=== PATIENT | male | born 1990 | race Caucasian/White ===

== ENCOUNTER 2022-12-14 11:01 | Inpatient (IN) | payer OTHER, SELFPAY ==
[2022-12-14 11:02] VITALS: BP 113/90; PULSE 102; RESP 18; TEMP 36.2; O2SAT 98; BMI 30.1
[2022-12-14 11:12] VITALS: O2SAT 98
--- NOTE | 2022-12-14 11:26 | EKG12_ITS ---
Test Reason : Blood Pressure : / mmHG Vent. Rate : 110 BPM Atrial Rate : 110 BPM P-R Int : 160 ms QRS Dur : 090 ms QT Int : 372 ms P-R-T Axes : 063 -06 141 degrees QTc Int : 503 ms Sinus tachycardia with frequent Premature ventricular complexes Minimal voltage criteria for LVH, may be normal variant ( R in aVL ) T wave abnormality, consider lateral ischemia Abnormal ECG Confirmed by JAKE GUY, MARTA ([id number]), editor index MAUREEN KEITA ([id number]) on 12/18/2022 10:30:45 AM Referred By: KURTIS Confirmed By:MARTA JOSEPH MD
--- NOTE | 2022-12-14 11:28 | NURSING ---
NO OLD EKGS
--- NOTE | 2022-12-14 11:30 | ED.VIS.DYS ---
HPI History of Present Illness Chief Complaint: Shortness of Breath Detail of Chief Complaint: Shortness of breath Informant: patient Narrative Narrative: Patient presents with shortness of breath that started a week ago. Patient had a cough a week ago. Patient described as a mild cold. He denies chest pain. Patient complains of exertional dyspnea. He denies recent surgery but states that he did travel to [place] about a month ago. Patient otherwise has history of seizure disorder and is on phenytoin. Patient has no heart history. No history of PE or DVT. [facility] Medical History (Updated 12/14/22 @ 14:[address] Ry Arroyo, DO) Seizure Home Medications phenytoin sodium extended 100 mg capsule 200 mg PO BID SEZIURES 12/14/22 [History Last Taken 12/13/22] Allergy/AdvReac Type Severity Reaction Status Date / Time No Known Allergies Allergy Verified 12/14/22 11:02 Social History Smoking Status: Never smoker ROS ROS ED Review of Systems ROS Unobtainable: other Constitutional Constitutional ED: Reports lethargy; Denies chills, fever(s), sweats or weight loss Eyes Eyes: Denies blurry vision, change in vision or diplopia ENT ENT ED: Denies rhinorrhea or sore throat Cardiovascular Cardiovascular: Reports racing heartbeat; Denies chest pain or orthopnea Respiratory/Chest Respiratory/Chest: Reports dyspnea and dyspnea on exertion; Denies cough, orthopnea or sputum Gastrointestinal Gastrointestinal: Denies abdominal pain, diarrhea, nausea or vomiting Genitourinary Genitourinary ED: Denies dysuria, hematuria or urinary frequency Musculoskeletal Musculoskeletal: Denies arthralgias, back pain, myalgias or neck pain Integumentary Denies abscess, Abrasions or rash Neurologic Neurologic: Denies headache(s) or weakness Psychiatric Psychiatric: Denies anxiety, depression or suicidal thoughts Endocrine Endocrinology: Denies polydipsia, polyphagia or polyuria Hematologic/Lymphatic Hematologic/Lymphatic: Denies easy bleeding, easy bruising or lymphadenopathy Allergic/Immunologic Allergic/Immunologic ED: Denies mouth swelling, tongue swelling or urticaria EXAM Physical Exam Const Vital Signs: 12/14/22 11:02 12/14/22 11:12 12/14/22 13:01 Temperature 97.2 F L Temperature Source Temporal Pulse Rate 102 H Respiratory Rate 18 Respiratory Effort Normal Non-Labored Respiratory Depth Normal Respiratory Pattern Normal Blood Pressure 113/90 H 93/76 Blood Pressure Mean 97 81 Pulse Ox 98 99 Oxygen Delivery Method Room Air Room Air Positive well nourished and well developed General Appearance ED: well developed and NAD HEENT Reports TM's clear and moist mucous membranes normocephalic and atraumatic; Negative for trauma or tenderness Tympanic Membrane ED: Yes TM's clear Eyes PERRL and EOMs intact bilaterally General Eye ED: Negative for pale conjunctiva or scleral icterus Neck no lymphadenopathy, supple and no JVD General: Negative for tenderness Chest Wall inspection of chest normal and palpation of chest normal Chest: Negative for tenderness Resp normal respiratory effort and clear to auscultation bilaterally Effort and Inspection: Negative for respiratory distress or pain with movement Auscultation: Negative for rhonchi, wheezes or diminished lung sounds Cardio regular rate, regular rhythm, S1 normal heart sound, S2 normal heart sound and no murmurs Rate: tachycardic Peripheral Pulses: pulses 2+ throughout GI normal to inspection, nondistended, normoactive bowel sounds, soft to palpation, non-tender, non-distended and no masses Back/Spine no CVA tenderness and no thoracic nor lumbar tenderness Extremity normal to inspection General Extremety ED: Negative for edema General Extremity: Negative for edema Neuro oriented x3, CN's II-XII intact bilaterally, no sensory deficits noted and gait normal Sensorium / Orientation: awake, alert, oriented to person, oriented to place and oriented to time Motor Exam: strength 5/5 throughout and strength abnormal Psych mental status grossly normal Skin no rashes or lesions noted and no wounds MDM MDM MDM Narrative Medical decision making narrative: IV line established on arrival. EKG obtained showed a sinus rhythm with a rate of [address] changes. In the differential was cardiac etiology of his dyspnea versus PE versus infectious etiology versus congestive heart failure. His CBC with differential was essentially unremarkable. Chemistries were unremarkable. D-dimer was elevated 1.[address] of the chest was obtained which was negative for PE but did show bilateral pleural effusions and pulmonary congestion consistent with CHF. Patient's BNP also was elevated over 1999. Patient was ordered Lasix 40 mg IV. I discussed case with cardiology on-call Dr. Patten who recommended admission of patient and he will see him in consultation. Patient will require further work-up such as cardiac echo. 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 Lab Data Attestation: I reviewed the patient's lab results. Labs: Laboratory Results - last 24 hr 12/14/22 12/14/22 12/14/22 11:30 11:30 11:30 WBC 6.5 RBC 5.48 Hgb 16.1 Hct 48.1 MCV 87.8 MCH 29.4 MCHC 33.5 RDW Std Deviation 42.0 RDW Coeff of Hipolito 13.0 Plt Count 269 MPV 11.1 Immature Gran % (Auto) 0.300 Neut % (Auto) 53.6 Lymph % (Auto) 35.5 Price % (Auto) 9.4 Eos % (Auto) 0.9 Baso % (Auto) 0.3 Absolute Neuts (auto) 3.5 Absolute Lymphs (auto) 2.30 Nucleated RBC % 0 D-Dimer Quant (PE/DVT) 1.53 H* Sodium 139 Potassium 3.9 Chloride 110 H Carbon Dioxide 20.0 L Anion Gap 9 BUN 15 Creatinine 1.12 Estim Creat Clear Calc 89.91 Est GFR (MDRD) Af Amer 96 Est GFR (MDRD) Non-Af 80 BUN/Creatinine Ratio 13.4 Glucose 103 Calcium 8.7 Troponin I High Sens 19 B-Natriuretic Peptide 12/14/22 11:30 WBC RBC Hgb Hct MCV MCH MCHC RDW Std Deviation RDW Coeff of Hipolito Plt Count MPV Immature Gran % (Auto) Neut % (Auto) Lymph % (Auto) Price % (Auto) Eos % (Auto) Baso % (Auto) Absolute Neuts (auto) Absolute Lymphs (auto) Nucleated RBC % D-Dimer Quant (PE/DVT) Sodium Potassium Chloride Carbon Dioxide Anion Gap BUN Creatinine Estim Creat Clear Calc Est GFR (MDRD) Af Amer Est GFR (MDRD) Non-Af BUN/Creatinine Ratio Glucose Calcium Troponin I High Sens B-Natriuretic Peptide 2020.3 H Radiography Diagnostic Testing: Clinical Impression(s) from Imaging Studies Chest X-Ray 12/14/22 11:35 IMPRESSION: Mild bibasilar pneumonia/atelectasis. Electronically Signed: Bony Sandoval MD at 11:53 EST , Chest CTA 12/14/22 12:12 IMPRESSION: Bilateral pleural effusions right greater than left with bibasilar atelectasis and/or infiltrates worse on the right lung base. Increased septal markings suggestive of a mild degree of superimposed CHF. Electronically Signed: Robbin Tejada MD at 12:56 EST , 1 view chest x-ray obtained interpreted by myself as increased markings both lower lobes which is suspected may be small effusions. Radiology felt patient had mild bibasilar pneumonia versus atelectasis. EKG Initial EKG: Attestation: I personally reviewed and interpreted this EKG as follows: Comments: Sinus rhythm with a rate of [address] changes anterior laterally. Discharge Plan Triage Chief Complaint: Shortness of Breath Other Complaint: Palpitations ED Provider: Ry Arroyo Dx/Rx/DC Orders Clinical Impression: Exertional dyspnea, New onset of congestive heart failure, Pleural effusion Prescriptions: No Action phenytoin sodium extended 100 mg capsule 200 mg PO BID Label Comments: TAKE 1 CAPSULE BY MOUTH 4 TIMES DAILY Primary Care Provider: Sarah Powell Referrals: Sarah Powell, [employer] [Primary Care Provider] - Disposition Disposition: Acute Care Hospital [facility]
--- NOTE | 2022-12-14 11:35 | RAD_ITS ---
EXAM: XR CHEST, 1 VIEW CLINICAL INDICATION: dyspnea TECHNIQUE: Frontal view of the chest. This report was created using [employer] report generation technology. COMPARISON: None. FINDINGS: LUNGS AND PLEURAL SPACES: Mild bibasilar pulmonary densities which may represent pneumonia or atelectasis. Minimal right pleural effusion. No pneumothorax. HEART: Mild cardiomegaly. MEDIASTINUM: No mediastinal or hilar mass. BONES/JOINTS: No acute abnormality. SOFT TISSUES: Normal. RAD/Chest 1 View (Portable) IMPRESSION: Mild bibasilar pneumonia/atelectasis. Electronically Signed: Bony Sandoval MD at 11:53 EST ,
[2022-12-14 11:47] LABS: Absolute Neutrophil Count 3.5 X10^3/uL (2.0-7.7); Basophil# 0.02 X10^3/uL; Basophil% 0.3 % (0-1); Eosinophil# 0.06 X10^3/uL; Eosinophils% 0.9 % (0-5); Hematocrit 48.1 % (40-54); Hemoglobin 16.1 g/dL (13.0-16.5); Lymphocyte % 35.5 % (19-41); Mean Corp Hgb Conc 33.5 g/dL (32-36); Mean Corpuscular Hgb 29.4 pg (27.0-32.0); Mean Corpuscular Volume 87.8 fL (80-94); Mean Platelet Vol. 11.1 fl (6.2-12.0); Monocyte# 0.61 X10^3/uL; Monocyte% 9.4 % (0-10); NRBC Flagged by Analyzer 0 % (0-5); Neutrophil # 3.47 X10^3/uL (2.7-7.7); Neutrophil % 53.6 % (47-70); Platelet Count 269 K/mm3 (150-450); Red Blood Count 5.48 M/mm3 (4.6-6.2); White Blood Count 6.5 K/mm3 (4.4-11.0)
[2022-12-14 12:04] LABS: Anion Gap 9 (5-15); BUN 15 mg/dL (7-18); BUN/Creat Ratio 13.4 RATIO (10-20); Calcium,Total 8.7 mg/dL (8.5-10.1); Chloride 110 mmol/L (98-107); Creatinine, Serum 1.12 mg/dL (0.70-1.30); EST Glomerular Filtration Rate 80 mL/min (>60); Est Glom Filt Rate - Afr Amer 96 mL/min (>60); Estimated Creatinine Clearance 89.91 ml/min; Glucose 103 mg/dL (74-106); Potassium 3.9 mmol/L (3.5-5.1); Sodium Level 139 mmol/L (136-145); Troponin-I HS 19 pg/mL (3.0-78.0)
[2022-12-14 12:11] LABS: D-Dimer Quantitative (DVT/PE) 1.53 FEU/ug/m (0.27-0.49)
--- NOTE | 2022-12-14 12:12 | CT_ITS ---
STUDY: CTA CHEST REASON FOR EXAM: Male, 32 years old. One week history of shortness of breath. History of seizures. RADIATION DOSAGE (If Supplied By Facility): CTDIvol = ( 14.72 ) mGy, DLP = ( 415.25 ) mGycm TECHNIQUE: The examination was performed with the intravenous administration of IV 100mL Isovue-370. Post-processing of the angiographic images was performed, with multiplanar reformation and 3D reconstruction. Individualized dose optimization techniques were used for this CT. COMPARISON: None. FINDINGS: Normal enhancement of the main pulmonary artery and right and left pulmonary arteries. Normal enhancement of the bilateral peripheral pulmonary arteries. There is no demonstrated pulmonary embolism. Normal thoracic aorta and visualized great vessels. There is no demonstrated aortic dissection. Cardiomegaly. Normal mediastinum. Normal hilar regions. Normal visualized trachea and bronchi. The lungs are well expanded. Small bilateral pleural effusions right greater than left with bibasilar atelectasis and/or infiltrates. Increased septal lines. Mild degree of superimposed CHF should be ruled out. Normal chest wall structures. Normal osseous structures. Normal visualized upper abdomen. CT/CTA Chest W/WO Contrast IMPRESSION: Bilateral pleural effusions right greater than left with bibasilar atelectasis and/or infiltrates worse on the right lung base. Increased septal markings suggestive of a mild degree of superimposed CHF. Electronically Signed: Robbin Tejada MD at 12:56 EST ,
[2022-12-14 13:01] VITALS: BP 93/76; O2SAT 99
[2022-12-14 14:36] VITALS: BP 112/87; PULSE 68; RESP 16; TEMP 36.6; O2SAT 94
--- NOTE | 2022-12-14 14:41 | ECHOD_ITS ---
Reason For Study: CHF Procedure This was a 2D Doppler, Color Flow transthoracic echocardiogram. Exam performed portable in ED. Left Ventricle Moderately dilated left ventricle. Echodensity in the basal region of the LV that seems to be attached to a chordae. Thrombus cannot be excluded. The estimated ejection fraction is 10-15 %. There is evidence of diastolic dysfunction. There is severe global hypokinesis of the left ventricle. Right Ventricle Normal RV size. Normal systolic function. Atria The left atrium is moderately enlarged. Normal right atrium. No doppler evidence for ASD. Mitral Valve There is no mitral valve stenosis. Severe (4+) mitral valve insufficiency. Tricuspid Valve There is no tricuspid stenosis. Mild tricuspid valve insufficiency. Pulmonary artery systolic pressure is 45 mmHg. Aortic Valve Trisinus/trileaflet aortic valve. There is no aortic stenosis. No aortic valve insufficiency. Pulmonic Valve There is no pulmonic valvular stenosis. No pulmonic valve insufficiency. Great Vessels Normal aortic root. Pericardium/Pleural No pericardial effusion. MMode/2D Measurements & Calculations LVIDd: 7.4 cm IVSd: 0.71 cm Ao root diam: 2.9 cm LVIDs: 6.8 cm LVPWd: 1.2 cm RVDd: 3.8 cm FS: 7.6 % LAV(MOD-bp): 104.9 ml LVAd ap4: 56.6 cm2 SV(MOD-sp4): 47.1 ml LAV(MOD-bp) Indexed: 51.5 ml/m2 LVLd ap4: 9.7 cm LAV(MOD-sp2): 105.2 ml EDV(MOD-sp4): 266.1 ml LAV(MOD-sp4): 85.6 ml EDV(sp4-el): 279.1 ml LVAs ap4: 50.5 cm2 LVLs ap4: 9.5 cm ESV(MOD-sp4): 219.0 ml ESV(sp4-el): 226.5 ml EF(MOD-sp4): 17.7 % EF(sp4-el): 18.8 % SV(sp4-el): 52.6 ml LA A4 area: 26.5 cm2 LA dimension(2D): 5.2 cm RA A4 area: 14.1 cm2 Doppler Measurements & Calculations MV E max leonardo: 108.0 cm/sec Ao V2 max: 121.6 cm/sec LV V1 max: 77.9 cm/sec Ao max P.9 mmHg LV V1 max P.5 mmHg Ao V2 mean: 79.6 cm/sec LV V1 mean P.3 mmHg Ao mean P.9 mmHg LV V1 mean: 53.1 cm/sec Ao V2 VTI: 17.6 cm LV V1 VTI: 12.6 cm AV (velocity ratio): 0.72 MR max leonardo: 428.5 cm/sec TR max leonardo: 320.2 cm/sec MR max P.4 mmHg TR max P.0 mmHg MR mean leonardo: 325.6 cm/sec MR mean P.6 mmHg MR VTI: 113.1 cm ECHO/Echo Complete Interpretation Summary The estimated ejection fraction is 10-15 %. There is severe global hypokinesis of the left ventricle. The left atrium is moderately enlarged. Severe (4+) mitral valve insufficiency. Mild tricuspid valve insufficiency. Echodensity in the basal region of the LV that seems to be attached to a chorda e. Thrombus cannot be excluded Ordering Physician: Oneal Elmore Referring Physician: RAYNA KEN Performed By: Anna Calderón RCS
--- NOTE | 2022-12-14 14:57 | NURSING ---
PCU TERELETSGOGO NEW ONSET CHF, EXERTIONAL DYSPNEA
--- NOTE | 2022-12-14 15:00 | NURSING ---
129 TERELETSKY ATRAIL FLUTTER WITH RAPID VENTRICULAR RESPONCE
[2022-12-14] MEDS: Furosemide 40 MG/4 ML Vial IV (15:05)
--- NOTE | 2022-12-14 16:06 | CON.PCM.CA_ITS ---
Assessment & Plan Assessment/Plan (1) New onset of congestive heart failure: PLAN: 2D echo revealed an EF of 10 to 15%. Please see echo report for further details. I would recommend Lasix 20 mg IV TID. Add Coreg 3.125 mg p.o. twice daily, lisinopril 2.5 mg p.o. daily. Coronary angiography tomorrow to work-up the cause for low EF. (2) LV (left ventricular) mural thrombus: PLAN: Patient has an echodensity in the LV that could be thrombus or fibroblastoma. We will anticoagulate the patient and repeat a 2D echo in 6 to 12 weeks to see if the echodensity resolves. If it does not then he may need further work-up for this with possibly a cardiac MRI. (3) Severe mitral regurgitation: PLAN: Appears to be secondary to dilated cardiomyopathy. HPI Consult Data Date of Consult: 12/14/22 HPI Narrative Reason for Consultation: CHF HPI Narrative: JOSH SHARP, is a 32 M who presents with shortness of breath. He has history of seizure disorder. He was having cold and cough that started about a week ago. Progressively he started having shortness of breath. His D-dimer was elevated and a CTA was obtained which was negative for PE. There were bilateral pleural effusions noted and his BNP T was elevated to over 2000. He denies any chest pain, palpitations Review of systems: All systems reviewed. All else is negative except that in HPI. [facility] Medical History (Updated 12/14/22 @ 16:[address] Loreto Patten MD) Seizure Home Medications phenytoin sodium extended 100 mg capsule 200 mg PO BID SEZIURES 12/14/22 [History Last Taken 12/13/22] Allergy/AdvReac Type Severity Reaction Status Date / Time No Known Allergies Allergy Verified 12/14/22 11:02 Social History Smoking Status: Never smoker Physical Exam Const alert and oriented x3 HEENT normocephalic Eyes no scleral icterus Resp normal respiratory effort Resp Narrative: Bilateral crackles Cardio regular rate Extremity no pedal edema Skin no rashes or lesions noted Psych mental status grossly normal Risk Stratification Risk Stratification Applicable: No Charges/Coding Visit Charges Inpatient E&M: 41675 Init Hosp L2 Objective Data Vital Signs: Vital Signs Temp Pulse Resp BP Pulse Ox O2 Del Method 97.8 F 68 16 112/87 H 94 Room Air 12/14/22 14:36 12/14/22 14:36 12/14/22 14:36 12/14/22 14:36 12/14/22 14:36 12/14/22 14:36 Oxygen Delivery Method Room Air Weight: 198 lb Body Mass Index (BMI) 30.1 Lab / Micro Data Result Diagrams: 12/14/22 11:30 12/14/22 11:30 Labs: Laboratory Results - last 24 hr 12/14/22 11:30: WBC 6.5, RBC 5.48, Hgb 16.1, Hct 48.1, MCV 87.8, MCH 29.4, MCHC 33.5, RDW Std Deviation 42.0, RDW Coeff of Hipolito 13.0, Plt Count 269, MPV 11.1, Immature Gran % (Auto) 0.300, Neut % (Auto) 53.6, Lymph % (Auto) 35.5, [place] % (Auto) 9.4, Eos % (Auto) 0.9, Baso % (Auto) 0.3, Absolute Neuts (auto) 3.5, Absolute Lymphs (auto) 2.30, Nucleated RBC % 0 12/14/22 11:30: D-Dimer Quant (PE/DVT) 1.53 H* 12/14/22 11:30: Sodium 139, Potassium 3.9, Chloride 110 H, Carbon Dioxide 20.0 L , Anion Gap 9, BUN 15, Creatinine 1.12, Estim Creat Clear Calc 89.91, Est GFR (MDRD) Af Amer 96, Est GFR (MDRD) Non-Af 80, BUN/Creatinine Ratio 13.4, Glucose 103, Calcium 8.7, Troponin I High Sens 19 12/14/22 11:30: B-Natriuretic Peptide 2020.3 H Micro: Microbiology 12/14/22 11:48 Nasal Secretion SARS-CoV-2 & FLU Antigen (Rapid) - Final Cardiology Labs/Tests 12/14/22 11:30: WBC 6.5, RBC 5.48, Hgb 16.1, Hct 48.1, MCV 87.8, MCH 29.4, MCHC 33.5, Plt Count 269, MPV 11.1, Immature Gran % (Auto) 0.300, Neut % (Auto) 53.6, Lymph % (Auto) 35.5, [place] % (Auto) 9.4, Eos % (Auto) 0.9, Baso % (Auto) 0.3, Absolute Neuts (auto) 3.5, Nucleated RBC % 0 12/14/22 11:30: D-Dimer Quant (PE/DVT) 1.53 H* 12/14/22 11:30: Sodium 139, Potassium 3.9, Chloride 110 H, Carbon Dioxide 20.0 L , Anion Gap 9, BUN 15, Creatinine 1.12, Est GFR (MDRD) Af Amer 96, Est GFR (MDRD) Non-Af 80, BUN/Creatinine Ratio 13.4, Glucose 103, Calcium 8.7 12/14/22 11:30: B-Natriuretic Peptide 2020.3 H Rhythm: EKG: ECHO: Stress Test: Cardiac Cath: PCI: CT Surgery: Holter monitor: EPS: PPM: CXR: Chest CT Scan: Radiography Diagnostic Testing: Radiology Impression Chest X-Ray 12/14/22 11:35 IMPRESSION: Mild bibasilar pneumonia/atelectasis. Electronically Signed: Bony Sandoval MD at 11:53 EST , Chest CTA 12/14/22 12:12 IMPRESSION: Bilateral pleural effusions right greater than left with bibasilar atelectasis and/or infiltrates worse on the right lung base. Increased septal markings suggestive of a mild degree of superimposed CHF. Electronically Signed: Robbin Tejada MD at 12:56 EST ,
[2022-12-14 16:46] VITALS: BMI 26.9
[2022-12-14 16:53] VITALS: BP 110/84; PULSE 55; RESP 15; TEMP 36.6; O2SAT 97
[2022-12-14] MEDS: Lisinopril 2.5 MG Tablet PO (17:15)
[2022-12-14] MEDS: HEPARIN/D5w 25,000 UNITS 25,000 UNITS/250 ML IV.SOLN. 12 UNITS CONT INF (18:32)
[2022-12-14 20:20] LABS: Partial Thromboplast Time 33.8 Seconds (24.1-36.2)
--- NOTE | 2022-12-14 20:20 | HP.PCM.HOS_ITS ---
HPI - General General Date of Admission: 12/14/22 Date of Service: 12/14/22 Chief Complaint: Shortness of breath, generalized fatigue HPI Narrative JOSH SHARP, is a 32 M who presents to the emergency room at [facility] with chief complaint of shortness of breath over the last several days along with extreme fatigue. Patient states that he has had a problem lying flat at night due to shortness of breath. Patient relates to an upper respiratory infection approximately a week ago with body aches and cough and a sore throat. Patient has no chronic medical problems. Work-up in the emergency room included labs which showed a normal CBC, D-dimer was elevated at 1.53, chemistry profile was remarkable for an elevated chloride and low bicarb. Patient's beta natruretic peptide was elevated at 2020. Patient's chest x-ray showed evidence of congestive heart failure, CTA showed bilateral pleural effusions right greater than left with bibasilar atelectasis there were also increased septal markings suggestive of superimposed CHF. I requested an echocardiogram be performed on the patient while he was in the ER, echocardiogram showed a severely reduced ejection fraction of approximately 10 to 15% with severe mitral regurg. There was also noted to be an echodensity in the basal region of the LV this seems to be attached to cordae. Thrombus could not be excluded. Patient will be admitted to PCU for acute congestive heart failure with cardiomyopathy-etiology is cardiomyopathy is unknown at this time but could be viral in nature due to the patient's complaints of recent upper respiratory tract infection. Patient will be placed on IV Lasix as well as an NERIS inhibitor and a beta-dheeraj. He may have to undergo a cardiac catheterization, medications will be adjusted per cardiology. [facility] Medical History (Updated 12/14/22 @ 16:[address] Loreto Patten MD) Seizure Home Medications phenytoin sodium extended 100 mg capsule 200 mg PO BID SEZIURES 12/14/22 [History Last Taken 12/13/22] Allergy/AdvReac Type Severity Reaction Status Date / Time No Known Allergies Allergy Verified 12/14/22 11:02 Social History Smoking Status: Never smoker ROS Constitutional Constitutional: Reports fatigue and weakness; Denies anorexia, change in weight, fever(s) or night sweats Eyes Eyes: Denies blurry vision, change in vision, discharge from eye(s) or eye pain Cardiovascular Cardiovascular: Reports dyspnea on exertion; Denies chest pain, claudication, edema, lightheadedness or palpitations Respiratory/Chest Respiratory/Chest: Reports dyspnea, shortness of breath at rest and shortness of breath with exertion; Denies cough or hemoptysis Gastrointestinal Gastrointestinal: Denies abdominal pain, constipation, diarrhea, hematemesis, hematochezia, melena, nausea or vomiting Genitourinary Genitourinary: Denies dysuria, hematuria, urinary frequency, urinary hesitancy, urinary incontinence or urinary urgency Musculoskeletal Musculoskeletal: Denies back pain, joint pain, joint stiffness, joint swelling, myalgias or neck pain Neurologic Neurologic: Denies abnormal gait, abnormal speech, dizziness, focal weakness, headache(s), loss of vision, numbness, other visual disturbances, paresthesias, syncope or tingling Psychiatric Psychiatric: Denies anxiety, cognitive impairment, depression, irritability, mood swings or suicidal ideation Endocrine Endocrinology: Denies change in body appearance, cold intolerance, excessive sweating, heat intolerance, polydipsia or polyuria Hematologic/Lymphatic Hematologic/Lymphatic: Denies none, anemia, easy bleeding, easy bruising or lymphadenopathy Allergic/Immunologic Allergic/Immunologic: Denies rhinitis, urticaria, eczemia or asthma Vital Signs Vital Signs Vital Signs: 12/14/22 11:02 12/14/22 11:12 12/14/22 13:01 Temperature 97.2 F L Temperature Source Temporal Pulse Rate 102 H Respiratory Rate 18 Respiratory Effort Normal Non-Labored Respiratory Depth Normal Respiratory Pattern Normal Blood Pressure 113/90 H 93/76 Blood Pressure Mean 97 81 Blood Pressure Source Blood Pressure Position Blood Pressure Location Pulse Ox 98 99 Oxygen Delivery Method Room Air Room Air Oxygen Flow Rate (L/min) 12/14/22 14:36 12/14/22 16:53 12/14/22 17:15 Temperature 97.8 F 97.9 F Temperature Source Temporal Oral Pulse Rate 68 55 L Respiratory Rate 16 15 Respiratory Effort Normal Non-Labored Respiratory Depth Normal Respiratory Pattern Normal Blood Pressure 112/87 H 110/84 H Blood Pressure Mean 95 94 Blood Pressure Source Monitor Blood Pressure Position Semi-Fowlers Blood Pressure Location Right Arm Pulse Ox 94 97 Oxygen Delivery Method Room Air Room Air Nasal Cannula Oxygen Flow Rate (L/min) 2 Weight Weight: 82.9 kg Body Mass Index (BMI) 26.9 Physical Exam Const alert, oriented x3, no apparent distress and healthy appearing General Appearance: cooperative, well kempt and well developed Orientation / Consciousness: awake, oriented to person, oriented to place and oriented to time HEENT normocephalic, head/scalp atraumatic, hearing grossly normal bilaterally and moist oral mucous membranes Eyes PERRL, EOMs intact bilaterally and conjunctivae normal Neck supple, no JVD, thyroid normal and no carotid bruits General: trachea midline Resp normal respiratory effort, no retractions, no use of accessory muscles and clear to auscultation bilaterally Auscultation: Negative for rales, rhonchi or wheezes Cardio regular rate, regular rhythm, S1 normal heart sound, S2 normal heart sound, no rub and no gallops GI normal to inspection, nondistended, normoactive bowel sounds, soft to palpation, non-tender and non-distended Extremity no clubbing, cyanosis or edema Skin no rashes or lesions noted General Skin Exam: no breakdown Neuro oriented x3, CN's II-XII intact bilaterally, no focal motor deficits and no sensory deficits noted Sensorium / Orientation: awake and alert Speech: speech normal Psych affect normal Results Lab / Micro Data Result Diagrams: 12/14/22 11:30 12/14/22 11:30 Labs: Laboratory Results - last 24 hr 12/14/22 11:30: WBC 6.5, RBC 5.48, Hgb 16.1, Hct 48.1, MCV 87.8, MCH 29.4, MCHC 33.5, RDW Std Deviation 42.0, RDW Coeff of Hipolito 13.0, Plt Count 269, MPV 11.1, Immature Gran % (Auto) 0.300, Neut % (Auto) 53.6, Lymph % (Auto) 35.5, [place] % (Auto) 9.4, Eos % (Auto) 0.9, Baso % (Auto) 0.3, Absolute Neuts (auto) 3.5, Absolute Lymphs (auto) 2.30, Nucleated RBC % 0 12/14/22 11:30: D-Dimer Quant (PE/DVT) 1.53 H* 12/14/22 11:30: Sodium 139, Potassium 3.9, Chloride 110 H, Carbon Dioxide 20.0 L , Anion Gap 9, BUN 15, Creatinine 1.12, Estim Creat Clear Calc 89.91, Est GFR (MDRD) Af Amer 96, Est GFR (MDRD) Non-Af 80, BUN/Creatinine Ratio 13.4, Glucose 103, Calcium 8.7, Troponin I High Sens 19 12/14/22 11:30: B-Natriuretic Peptide 2020.3 H Micro: Microbiology 12/14/22 11:48 Nasal Secretion SARS-CoV-2 & FLU Antigen (Rapid) - Final Radiology Impression Chest X-Ray 12/14/22 11:35 IMPRESSION: Mild bibasilar pneumonia/atelectasis. Electronically Signed: Bony Sandoval MD at 11:53 EST , Chest CTA 12/14/22 12:12 IMPRESSION: Bilateral pleural effusions right greater than left with bibasilar atelectasis and/or infiltrates worse on the right lung base. Increased septal markings suggestive of a mild degree of superimposed CHF. Electronically Signed: Robbin Tejada MD at 12:56 EST , Echocardiogram 12/14/22 14:41 Interpretation Summary The estimated ejection fraction is 10-15 %. There is severe global hypokinesis of the left ventricle. The left atrium is moderately enlarged. Severe (4+) mitral valve insufficiency. Mild tricuspid valve insufficiency. Echodensity in the basal region of the LV that seems to be attached to a chordae. Thrombus cannot be excluded Ordering Physician: Oneal Elmore Referring Physician: RAYNA KEN Performed By: Anna Caledrón RCS Assessment & Plan Assessment/Plan (1) New onset of congestive heart failure: PLAN: Plan 1. Acute systolic congestive heart failure-etiology unclear at this point, patient will be admitted to PCU, he will be placed on IV Lasix, he will be given an NERIS inhibitor, beta-dheeraj, and he will be anticoagulated. It appears that cardiology will need to perform a catheterization possibly tomorrow on the patient. #2 cardiomyopathy-type unknown at this time, could be viral in etiology, cardiology is participating in his care #3 severe mitral valve insufficiency-possibly secondary to his cardiomyopathy, cardiology is participating in his care #4 echodensity in the basal region of the LV attached to the cordae-patient will be placed on heparin for now Total clinical time spent by myself addressing the patient's medical issues, reviewing all the medical data, collaborating with patient's care team: 55 minutes Charges/Coding Visit Charges Inpatient E&M: 33098 Init Hosp L2
[2022-12-14 21:12] VITALS: BP 108/90; PULSE 108; RESP 18; TEMP 36.3; O2SAT 98
[2022-12-14] MEDS: Carvedilol 3.125 MG TABLET PO (21:13)
[2022-12-14] MEDS: Phenytoin Na 100 MG Capsule 200 MG PO (21:13)
[2022-12-14] MEDS: Furosemide 20 MG/2 ML VIAL IV (21:13)
[2022-12-14] MEDS: 0.9% Saline Lock 10 ML Syringe IV (21:13)
[2022-12-15] VITALS (15 sets, daily range): BP systolic 83–95; BP diastolic 50–74; PULSE 83–100; RESP 16–18; TEMP 36.5–37; O2SAT 94–99
[2022-12-15 02:11] LABS: Anion Gap 6 (5-15); BUN 18 mg/dL (7-18); BUN/Creat Ratio 13.4 RATIO (10-20); Calcium,Total 8.6 mg/dL (8.5-10.1); Chloride 104 mmol/L (98-107); Creatinine, Serum 1.34 mg/dL (0.70-1.30); EST Glomerular Filtration Rate 65 mL/min (>60); Est Glom Filt Rate - Afr Amer 78 mL/min (>60); Estimated Creatinine Clearance 77.68 ml/min; Glucose 103 mg/dL (74-106); Potassium 3.7 mmol/L (3.5-5.1); Sodium Level 138 mmol/L (136-145)
[2022-12-15] MEDS: Heparin Injection (Vial) 5,000 UNIT/ML VIAL IV (02:26)
[2022-12-15] MEDS: Furosemide 20 MG/2 ML VIAL IV (05:14)
[2022-12-15] MEDS: 0.9% Saline Lock 10 ML Syringe IV ×2 (05:14→07:26)
--- NOTE | 2022-12-15 05:39 | EKG12_ITS ---
Test Reason : PRE HEART CATH Blood Pressure : / mmHG Vent. Rate : 090 BPM Atrial Rate : 090 BPM P-R Int : 166 ms QRS Dur : 098 ms QT Int : 442 ms P-R-T Axes : 060 008 230 degrees QTc Int : 540 ms Sinus rhythm with frequent Premature ventricular complexes Possible Left atrial enlargement T wave abnormality, consider inferior ischemia T wave abnormality, consider anterolateral ischemia Confirmed by JAKE GUY, MARTA ([id number]), editor newspaper MAUREEN KEITA ([id number]) on 12/19/2022 11:34:46 AM Referred By: Confirmed By:MARTA JOSEPH MD
[2022-12-15] MEDS: Carvedilol 3.125 MG TABLET PO (06:35)
[2022-12-15] MEDS: Lisinopril 2.5 MG Tablet PO (06:35)
--- NOTE | 2022-12-15 09:03 | PN.CARD_ITS ---
Subjective Subjective Seen and evaluated. Appears to be doing well. Underwent cardiac catheterization this morning. Objective Data Vital Signs: Vital Signs Temp Pulse Resp BP Pulse Ox O2 Del Method O2 Flow Rate 97.9 F 89 18 95/64 97 Room Air 2 12/15/22 06:33 12/15/22 06:33 12/15/22 06:33 12/15/22 06:33 12/15/22 07:51 12/15/22 07:51 12/15/22 02:34 Oxygen Flow Rate (L/min) 2 Oxygen Delivery Method Room Air Weight: 178 lb 5.663 oz Body Mass Index (BMI) 26.9 Intake & Output: Intake and Output for Last 24 Hours 12/13/22 12/14/22 12/15/22 23:59 23:59 23:59 Intake Total 240 / 240 159.77 / 159.77 Output Total 150 / 150 500 / 500 Balance 90 / 90 -340.23 / -340.23 Lab / Micro Data Result Diagrams: 12/14/22 11:30 12/15/22 01:50 Labs: Laboratory Results - last 24 hr 12/14/22 11:30: WBC 6.5, RBC 5.48, Hgb 16.1, Hct 48.1, MCV 87.8, MCH 29.4, MCHC 33.5, RDW Std Deviation 42.0, RDW Coeff of Hipolito 13.0, Plt Count 269, MPV 11.1, Immature Gran % (Auto) 0.300, Neut % (Auto) 53.6, Lymph % (Auto) 35.5, [place] % (Auto) 9.4, Eos % (Auto) 0.9, Baso % (Auto) 0.3, Absolute Neuts (auto) 3.5, Absolute Lymphs (auto) 2.30, Nucleated RBC % 0 12/14/22 11:30: D-Dimer Quant (PE/DVT) 1.53 H* 12/14/22 11:30: Sodium 139, Potassium 3.9, Chloride 110 H, Carbon Dioxide 20.0 L , Anion Gap 9, BUN 15, Creatinine 1.12, Estim Creat Clear Calc 89.91, Est GFR (MDRD) Af Amer 96, Est GFR (MDRD) Non-Af 80, BUN/Creatinine Ratio 13.4, Glucose 103, Calcium 8.7, Troponin I High Sens 19 12/14/22 11:30: B-Natriuretic Peptide 2020.3 H 12/14/22 19:50: APTT 33.8 12/15/22 01:50: Sodium 138, Potassium 3.7, Chloride 104, Carbon Dioxide 28.0, Anion Gap 6, BUN 18, Creatinine 1.34 H, Estim Creat Clear Calc 77.68, Est GFR (MDRD) Af Amer 78, Est GFR (MDRD) Non-Af 65, BUN/Creatinine Ratio 13.4, Glucose 103, Calcium 8.6 12/15/22 01:50: APTT 46.0 H Micro: Microbiology 12/14/22 11:48 Nasal Secretion SARS-CoV-2 & FLU Antigen (Rapid) - Final Cardiology Labs/Tests 12/14/22 11:30: WBC 6.5, RBC 5.48, Hgb 16.1, Hct 48.1, MCV 87.8, MCH 29.4, MCHC 33.5, Plt Count 269, MPV 11.1, Immature Gran % (Auto) 0.300, Neut % (Auto) 53.6, Lymph % (Auto) 35.5, [place] % (Auto) 9.4, Eos % (Auto) 0.9, Baso % (Auto) 0.3, Absolute Neuts (auto) 3.5, Nucleated RBC % 0 12/14/22 11:30: D-Dimer Quant (PE/DVT) 1.53 H* 12/14/22 11:30: Sodium 139, Potassium 3.9, Chloride 110 H, Carbon Dioxide 20.0 L , Anion Gap 9, BUN 15, Creatinine 1.12, Est GFR (MDRD) Af Amer 96, Est GFR (MDRD) Non-Af 80, BUN/Creatinine Ratio 13.4, Glucose 103, Calcium 8.7 12/14/22 11:30: B-Natriuretic Peptide 2020.3 H 12/14/22 19:50: APTT 33.8 12/15/22 01:50: Sodium 138, Potassium 3.7, Chloride 104, Carbon Dioxide 28.0, Anion Gap 6, BUN 18, Creatinine 1.34 H, Est GFR (MDRD) Af Amer 78, Est GFR (MDRD) Non-Af 65, BUN/Creatinine Ratio 13.4, Glucose 103, Calcium 8.6 12/15/22 01:50: APTT 46.0 H Rhythm: EKG: ECHO: Stress Test: Cardiac Cath: PCI: CT Surgery: Holter monitor: EPS: PPM: CXR: Chest CT Scan: Radiography Diagnostic Testing: Radiology Impression Chest X-Ray 12/14/22 11:35 IMPRESSION: Mild bibasilar pneumonia/atelectasis. Electronically Signed: Bony Sandoval MD at 11:53 EST , Chest CTA 12/14/22 12:12 IMPRESSION: Bilateral pleural effusions right greater than left with bibasilar atelectasis and/or infiltrates worse on the right lung base. Increased septal markings suggestive of a mild degree of superimposed CHF. Electronically Signed: Robbin Tejada MD at 12:56 EST , Echocardiogram 12/14/22 14:41 Interpretation Summary The estimated ejection fraction is 10-15 %. There is severe global hypokinesis of the left ventricle. The left atrium is moderately enlarged. Severe (4+) mitral valve insufficiency. Mild tricuspid valve insufficiency. Echodensity in the basal region of the LV that seems to be attached to a chordae. Thrombus cannot be excluded Ordering Physician: Oneal Elmore Referring Physician: RAYNA KEN Performed By: Anna Calderón RCS Physical Exam Const alert, oriented x3, no apparent distress and healthy appearing General Appearance: cooperative, well kempt and well developed Orientation / Consciousness: awake, oriented to person, oriented to place and oriented to time HEENT normocephalic, head/scalp atraumatic, hearing grossly normal bilaterally and moist oral mucous membranes Eyes PERRL, EOMs intact bilaterally and conjunctivae normal Neck supple, no JVD, thyroid normal and no carotid bruits General: trachea midline Resp normal respiratory effort, no retractions, no use of accessory muscles and clear to auscultation bilaterally Auscultation: Negative for rales, rhonchi or wheezes Cardio regular rate, regular rhythm, S1 normal heart sound, S2 normal heart sound, no rub and no gallops Heart Sounds: murmur systolic GI normal to inspection, nondistended, normoactive bowel sounds, soft to palpation, non-tender and non-distended Extremity no clubbing, cyanosis or edema Skin no rashes or lesions noted General Skin Exam: no breakdown Neuro oriented x3, CN's II-XII intact bilaterally, no focal motor deficits and no sensory deficits noted Sensorium / Orientation: awake and alert Speech: speech normal Psych affect normal Assessment & Plan Assessment/Plan (1) New onset of congestive heart failure: PLAN: He does have evidence of new onset congestive heart failure which is systolic. He does not appear to be coronary in origin. His cardiac ca theterization this morning demonstrated normal coronary arteries. * His echocardiogram demonstrated severe left ventricular systolic dysfunction. 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 We will continue with guideline directed medical care and repeat his echocardiogram in a few weeks. Will also consider anticoagulation due to the severe LV dysfunction and findings.
[2022-12-15] MEDS: Phenytoin Na 100 MG Capsule 200 MG PO ×2 (10:30→21:30)
[2022-12-15 10:44] LABS: International Normalized Ratio 1.2; Prothrombin Time (Protime)PT. 14.5 SECONDS (11.7-14.9)
--- NOTE | 2022-12-15 11:38 | PN.HOSP_ITS ---
Subjective Subjective No issues overnight, doing well and wants to go home Objective Data Objective Data Vital Signs: Vital Signs Temp Pulse Resp BP Pulse Ox O2 Del Method O2 Flow Rate 97.9 F 83 16 90/63 94 Room Air 2 12/15/22 09:19 12/15/22 11:33 12/15/22 11:33 12/15/22 11:33 12/15/22 11:33 12/15/22 11:33 12/15/22 02:34 Oxygen Flow Rate (L/min) 2 Oxygen Delivery Method Room Air Weight: 178 lb 5.663 oz Body Mass Index (BMI) 26.9 Intake & Output: Intake and Output for Last 24 Hours 12/14/22 12/15/22 12/16/22 03:59 03:59 03:59 Intake Total 335.2 / 335.2 64.57 / 64.57 Output Total 150 / 150 500 / 500 Balance 185.2 / 185.2 -435.43 / -435.43 Lab / Micro Data Result Diagrams: 12/14/22 11:30 12/15/22 01:50 Labs: Laboratory Results - last 24 hr 12/14/22 11:30: WBC 6.5, RBC 5.48, Hgb 16.1, Hct 48.1, MCV 87.8, MCH 29.4, MCHC 33.5, RDW Std Deviation 42.0, RDW Coeff of Hipolito 13.0, Plt Count 269, MPV 11.1, Immature Gran % (Auto) 0.300, Neut % (Auto) 53.6, Lymph % (Auto) 35.5, [place] % (Auto) 9.4, Eos % (Auto) 0.9, Baso % (Auto) 0.3, Absolute Neuts (auto) 3.5, Absolute Lymphs (auto) 2.30, Nucleated RBC % 0 12/14/22 11:30: D-Dimer Quant (PE/DVT) 1.53 H* 12/14/22 11:30: Sodium 139, Potassium 3.9, Chloride 110 H, Carbon Dioxide 20.0 L , Anion Gap 9, BUN 15, Creatinine 1.12, Estim Creat Clear Calc 89.91, Est GFR (MDRD) Af Amer 96, Est GFR (MDRD) Non-Af 80, BUN/Creatinine Ratio 13.4, Glucose 103, Calcium 8.7, Troponin I High Sens 19 12/14/22 11:30: B-Natriuretic Peptide 2020.3 H 12/14/22 19:50: APTT 33.8 12/15/22 01:50: Sodium 138, Potassium 3.7, Chloride 104, Carbon Dioxide 28.0, Anion Gap 6, BUN 18, Creatinine 1.34 H, Estim Creat Clear Calc 77.68, Est GFR (MDRD) Af Amer 78, Est GFR (MDRD) Non-Af 65, BUN/Creatinine Ratio 13.4, Glucose 103, Calcium 8.6 12/15/22 01:50: APTT 46.0 H 12/15/22 10:23: PT 14.5, INR 1.2 Micro: Microbiology 12/14/22 11:48 Nasal Secretion SARS-CoV-2 & FLU Antigen (Rapid) - Final Radiography Diagnostic Testing: Radiology Impression Chest X-Ray 12/14/22 11:35 IMPRESSION: Mild bibasilar pneumonia/atelectasis. Electronically Signed: Bony Sandoval MD at 11:53 EST , Chest CTA 12/14/22 12:12 IMPRESSION: Bilateral pleural effusions right greater than left with bibasilar atelectasis and/or infiltrates worse on the right lung base. Increased septal markings suggestive of a mild degree of superimposed CHF. Electronically Signed: Robbin Tejada MD at 12:56 EST , Echocardiogram 12/14/22 14:41 Interpretation Summary The estimated ejection fraction is 10-15 %. There is severe global hypokinesis of the left ventricle. The left atrium is moderately enlarged. Severe (4+) mitral valve insufficiency. Mild tricuspid valve insufficiency. Echodensity in the basal region of the LV that seems to be attached to a chordae. Thrombus cannot be excluded Ordering Physician: Oneal Elmore Referring Physician: RAYNA KEN Performed By: Anna Calderón RCS Physical Exam Narrative General: Alert, Oriented x3, Cooperative, No apparent distress HEENT: Atraumatic, PERRLA, EOMI, Normocephalic Oral: Moist Mucosa Neck: Supple, No JVD Lungs: Diminished, Normal air movement, No rhonchi, No wheeze, No rales Cardiovascular: Regular rate, Regular Rhythm, Normal S1, Normal S2, murmurs Abdomen: Soft, Non Tender, Non-Distended, No Hepato-splenomegaly Extremities: No edema, Capillary Refill Less than 3 Seconds Skin: No rashes, No breakdown Musculoskeletal: No Tenderness to Palpation of Joints or Extremities Neurological: Cranial nerves II-XII grossly intact, Motor Exam 5/5 strength throughout, Sensory exam intact to light touch and pain Psych/Mental Status: Normal Affect, Appropriate Assessment & Plan Assessment/Plan (1) New onset of congestive heart failure: PLAN: Plan 1. Acute systolic congestive heart failure/severe mitral valve insufficiency/LV thrombus ? 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 Continue with medications for symptom management including lisinopril, Lasix, Coreg ? There is still some concern for left ventricular thrombus so we will start him on Coumadin he does not need to be bridged ? Appreciate cardiology's assistance 2. Seizure disorder ? Stable ? Continue with phenytoin, will check level which can be followed up as an outpatient DVT: Coumadin Charges/Coding Visit Charges Inpatient E&M: 18685 Subs Hosp L2
--- NOTE | 2022-12-15 11:40 | CASEMGMT ---
RN CM MECHANICAL SYSTEMS DESIGN ENGINEER CM to room to meet with patient for initial transition planning/care coordination assessment. RN ROSA introduced self and role at [facility]. Pt voices understanding and consents to assessment at this time. Pt sitting up in chair in no distress at this time. @ bedside. Pt is A/O at this time and answers all questions appropriately. Care providers, pharmacy, and demographics verified/updated at this time. PCP: Dr Sarah Powell Specialists: none Preferred Pharmacy: [facility] retail Insurance: [facility] Prescription Benefit: none. Pt currently on warfarin. Discussed need of labs, f/u, dosage adjustments on warfarin, and also high-cost of other anti-coag's. Pt states the higher-cost medications (approx $3-400/month) would not be affordable. LNOK: , Ernestina. Parents, Lakhani and Tyler Living Arrangements: Lives w/ and 3 children. Independent. Works full-time Transportation: Hire drivers DME: Denies using any DME HHC/SNF: No hx of either. No needs identified. Pt wishes to return home and states has no concerns with going home at time of discharge. CM to follow for any discharge planning/needs. Pt and voice no concerns/needs at this time. PLAN: Home. Follow for anti-coag @ d/c. Pt currently on warfarin. Lindsay BRICEÑO RN, CM
[2022-12-15 14:00] LABS: Phenytoin (Dilantin) Level 5.8 mL (10.0-20.0)
[2022-12-16] VITALS (7 sets, daily range): BP systolic 82–88; BP diastolic 60–66; PULSE 72–103; RESP 16–18; TEMP 36.4–37; O2SAT 95–99
[2022-12-16 07:01] LABS: Absolute Lymphocyte Count 2.63 X10^3/uL (0.83-4.51); Absolute Neutrophil Count 3.1 X10^3/uL (2.0-7.7); Basophil# 0.03 X10^3/uL; Basophil% 0.5 % (0-1); Eosinophil# 0.13 X10^3/uL; Hemoglobin 16.4 g/dL (13.0-16.5); Lymphocyte # 2.63 X10^3/ul (0.83-4.51); Lymphocyte % 40.5 % (19-41); Mean Corp Hgb Conc 34.2 g/dL (32-36); Mean Corpuscular Hgb 29.7 pg (27.0-32.0); Monocyte# 0.59 X10^3/uL; Monocyte% 9.1 % (0-10); NRBC Flagged by Analyzer 0 % (0-5); Neutrophil % 47.7 % (47-70); Platelet Count 245 K/mm3 (150-450); RBC Distribution Width CV 12.9 % (11.6-14.6); RBC Distribution Width SD 40.4 fl (35.1-43.9); Red Blood Count 5.52 M/mm3 (4.6-6.2); White Blood Count 6.5 K/mm3 (4.4-11.0)
[2022-12-16 07:24] LABS: Anion Gap 6 (5-15); BUN 28 mg/dL (7-18); BUN/Creat Ratio 20.7 RATIO (10-20); Calcium,Total 8.4 mg/dL (8.5-10.1); Chloride 106 mmol/L (98-107); Creatinine, Serum 1.35 mg/dL (0.70-1.30); EST Glomerular Filtration Rate 64 mL/min (>60); Est Glom Filt Rate - Afr Amer 78 mL/min (>60); Glucose 94 mg/dL (74-106); Potassium 3.7 mmol/L (3.5-5.1); Sodium Level 137 mmol/L (136-145)
[2022-12-16] MEDS: Phenytoin Na 100 MG Capsule 200 MG PO (10:19)
[2022-12-16] MEDS: Furosemide 40 MG Tablet PO (10:20)
[2022-12-16] MEDS: Carvedilol 3.125 MG TABLET PO (10:20)
--- NOTE | 2022-12-16 10:42 | PCM.DC ---
Discharge Instructions Diet Discharge Diet: No restrictions Activity Discharge Activity: Return to Normal Activity Dressing / Incision Call your doctor if you observe: Fever of 101 or Higher, Shortness of breath, Dizziness, Fainting spells, Swelling in the ankles, Chest pain and Increased palpitations (irregular heartbeat) Follow Up Care Test Results: Test results from this visit will be discussed in further detail at your follow-up appointment, if applicable. Discharge Plan Admission Admit Date/Time: 12/14/22 15:56 Attending Provider: Guanakito Henry Primary Care Provider: Sarah Powell Consulting Providers: Loreto Patten ; Oneal Elmore Instructions Patient Instructions: What to Know When Taking?Warfarin Additional Instructions / Restrictions: Follow-up with your PCP as an outpatient to monitor your renal function since you are being started on Lasix as well as your blood pressure. Also since you are being started on Coumadin for the potential blood clot in your left ventricle, I would recommend follow-up of your phenytoin levels as there may be an interaction. You will also need to be monitoring your INR as an outpatient as well because of the blood thinner you are on. Discharge Orders/Prescriptions Prescriptions: New furosemide 40 mg Tablet 40 mg PO DAILY 30 Days Qty: 30 0RF carvedilol 3.125 mg Tablet 3.125 mg PO BID 30 Days Qty: 60 0RF warfarin [Jantoven] 5 mg Tablet 5 mg PO DINNER 30 Days Qty: 30 0RF Continued phenytoin sodium extended 100 mg capsule 200 mg PO BID Label Comments: TAKE 1 CAPSULE BY MOUTH 4 TIMES DAILY Referrals / Follow Up: Sarah Powell NP-C [Primary Care Provider] - Noel Nelson NP, NP-C [Med Staff - [facility] Practice Prof] - 01/04/23 1:30 pm Disposition Disposition (needs filled in before D/C Order can be placed): Home, Self Care
--- NOTE | 2022-12-16 10:46 | PN.CARD_ITS ---
Subjective Subjective Seen and evaluated. Appears to be doing well. Objective Data Vital Signs: Vital Signs Temp Pulse Resp BP Pulse Ox O2 Del Method O2 Flow Rate 98.6 F 103 H 16 82/60 L 99 Room Air 2 12/16/22 09:54 12/16/22 09:55 12/16/22 09:54 12/16/22 09:54 12/16/22 09:54 12/16/22 09:55 12/15/22 02:34 Oxygen Flow Rate (L/min) 2 Oxygen Delivery Method Room Air Weight: 180 lb 12.465 oz Body Mass Index (BMI) 26.9 Intake & Output: Intake and Output for Last 24 Hours 12/14/22 12/15/22 12/16/22 23:59 23:59 23:59 Intake Total 240 / 240 1159.77 / 1159.77 Output Total 150 / 150 500 / 500 Balance 90 / 90 659.77 / 659.77 Lab / Micro Data Result Diagrams: 12/16/22 06:23 12/16/22 06:23 Labs: Laboratory Results - last 24 hr 12/15/22 12:45: Phenytoin 5.8 L 12/16/22 06:23: WBC 6.5, RBC 5.52, Hgb 16.4, Hct 48.0, MCV 87.0, MCH 29.7, MCHC 34.2, RDW Std Deviation 40.4, RDW Coeff of Hipolito 12.9, Plt Count 245, MPV 11.0, Immature Gran % (Auto) 0.200, Neut % (Auto) 47.7, Lymph % (Auto) 40.5, [place] % (Auto) 9.1, Eos % (Auto) 2.0, Baso % (Auto) 0.5, Absolute Neuts (auto) 3.1, Absolute Lymphs (auto) 2.63, Nucleated RBC % 0 12/16/22 06:23: Sodium 137, Potassium 3.7, Chloride 106, Carbon Dioxide 25.0, Anion Gap 6, BUN 28 H, Creatinine 1.35 H, Estim Creat Clear Calc 77.10, Est GFR (MDRD) Af Amer 78, Est GFR (MDRD) Non-Af 64, BUN/Creatinine Ratio 20.7 H, Glucose 94, Calcium 8.4 L Cardiology Labs/Tests 12/16/22 06:23: WBC 6.5, RBC 5.52, Hgb 16.4, Hct 48.0, MCV 87.0, MCH 29.7, MCHC 34.2, Plt Count 245, MPV 11.0, Immature Gran % (Auto) 0.200, Neut % (Auto) 47.7, Lymph % (Auto) 40.5, [place] % (Auto) 9.1, Eos % (Auto) 2.0, Baso % (Auto) 0.5, Absolute Neuts (auto) 3.1, Nucleated RBC % 0 12/16/22 06:23: Sodium 137, Potassium 3.7, Chloride 106, Carbon Dioxide 25.0, Anion Gap 6, BUN 28 H, Creatinine 1.35 H, Est GFR (MDRD) Af Amer 78, Est GFR (MDRD) Non-Af 64, BUN/Creatinine Ratio 20.7 H, Glucose 94, Calcium 8.4 L Rhythm: EKG: ECHO: Stress Test: Cardiac Cath: PCI: CT Surgery: Holter monitor: EPS: PPM: CXR: Chest CT Scan: Physical Exam Const alert, oriented x3, no apparent distress and healthy appearing General Appearance: cooperative, well kempt and well developed Orientation / Consciousness: awake, oriented to person, oriented to place and or iented to time HEENT normocephalic, head/scalp atraumatic, hearing grossly normal bilaterally and moist oral mucous membranes Eyes PERRL, EOMs intact bilaterally and conjunctivae normal Neck supple, no JVD, thyroid normal and no carotid bruits General: trachea midline Resp normal respiratory effort, no retractions, no use of accessory muscles and clear to auscultation bilaterally Auscultation: Negative for rales, rhonchi or wheezes Cardio regular rate, regular rhythm, S1 normal heart sound, S2 normal heart sound, no rub and no gallops Heart Sounds: murmur systolic GI normal to inspection, nondistended, normoactive bowel sounds, soft to palpation, non-tender and non-distended Extremity no clubbing, cyanosis or edema Skin no rashes or lesions noted General Skin Exam: no breakdown Neuro oriented x3, CN's II-XII intact bilaterally, no focal motor deficits and no sensory deficits noted Sensorium / Orientation: awake and alert Speech: speech normal Psych affect normal Assessment & Plan Assessment/Plan (1) New onset of congestive heart failure: PLAN: He does have evidence of new onset congestive heart failure which is systolic. He does not appear to be coronary in origin. His cardiac catheterization this morning demonstrated normal coronary arteries. * His echocardiogram demonstrated severe left ventricular systolic dysfunction. * Will continue his beta-dheeraj * His blood pressure is marginal and we will hold off on increasing the lisinopril at this time * Will put him on an SGLT2 inhibitor * Will transition him to oral diuretics * Can be discharged for outpatient follow-up. 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 We will continue with guideline directed medical care and repeat his echocardiogram in a few weeks. Will also consider anticoagulation due to the severe LV dysfunction and findings.
--- NOTE | 2022-12-16 11:10 | DS.PCM_ITS ---
Providers Date of Admission: 12/14/22 Primary Care Physician: REKHA [place] Consultations 12/14/22 16:40 Consult: Cardiology Routine Consulting Provider: Loreto Patten Reason for Consult: Cardiomyopathy, CHF EMERGENT Consult: No MD Notified: Yes Date Notified: 12/14/22 Time Notified: 16:23 Method of Notification: Verbal Method of Consult:: In-Person Reason For Visit: ACUTE SYSTOLIC CONGESTIVE HEART FAILURE/CARDIOMYOP Diagnosis Discharge Diagnosis (1) New onset of congestive heart failure: Status: Acute Code(s): I50.9 - Heart failure, unspecified (2) Cardiomyopathy: Status: Acute Code(s): I42.9 - Cardiomyopathy, unspecified Plan 1. Acute systolic congestive heart failure/severe mitral valve insufficiency/LV thrombus ? 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 Continue with medications for symptom management including lisinopril, Lasix, Coreg ? There is still some concern for left ventricular thrombus so we will start him on Coumadin he does not need to be bridged ? Appreciate cardiology's assistance 2. Seizure disorder ? Stable ? Continue with phenytoin, will check level which can be followed up as an out patient DVT: Coumadin Medications at Discharge Home Medications phenytoin sodium extended 100 mg capsule 200 mg PO BID SEZIURES 12/14/22 carvedilol 3.125 mg tablet 3.125 mg PO BID 30 days #60 tabs 12/16/22 empagliflozin 10 mg tablet (Jardiance) 10 mg PO DAILY #30 tabs 12/16/22 furosemide 40 mg tablet 40 mg PO DAILY 30 days #30 tabs 12/16/22 warfarin 5 mg tablet (Jantoven) 5 mg PO DINNER 30 days #30 tabs 12/16/22 Hospital Course Procedures 2-D Echocardiogram and Cardiac catheterization Summary of Care Provided Minutes Spent on Discharge: 38 Hospital Course: Per HPI: JOSH SHARP, is a 32 M who presents to the emergency room at [facility] with chief complaint of shortness of breath over the last several days along with extreme fatigue.? Patient states that he has had a problem lying flat at night due to shortness of breath.? Patient relates to an upper respiratory infection approximately a week ago with body aches and cough and a sore throat.? Patient has no chronic medical problems. Work-up in the emergency room included labs which showed a normal CBC, D-dimer was elevated at 1.53, chemistry profile was remarkable for an elevated chloride and low bicarb.? Patient's beta natruretic peptide was elevated at 2020.? Patient's chest x-ray showed evidence of congestive heart failure, CTA showed bilateral pleural effusions right greater than left with bibasilar atelectasis there were also increased septal markings suggestive of superimposed CHF. I requested an echocardiogram be performed on the patient while he was in the ER, echocardiogram showed a severely reduced ejection fraction of approximately 10 to 15% with severe mitral regurg.? There was also noted to be an echodensity in the basal region of the LV this seems to be attached to cordae.? Thrombus could not be excluded. Patient will be admitted to PCU for acute congestive heart failure with cardiomyopathy-etiology is cardiomyopathy is unknown at this time but could be viral in nature due to the patient's complaints of recent upper respiratory tract infection.? Patient will be placed on IV Lasix as well as an NERIS inhibitor and a beta-dheeraj.? He may have to undergo a cardiac catheterization, medications will be adjusted per cardiology. Hospital Course: 1. Acute systolic congestive heart failure secondary to a viral cardiomyopathy/severe mitral valve insufficiency/LV thrombus?32-year-old male presented to the hospital with shortness of breath as well as extreme fatigue several days prior to admission. D-dimer was elevated and a CTA was negative for PE echo was performed which showed an EF of 10 to 15% with severe mitral regurgitation and possible left ventricular thrombus. Heart cath was performed which demonstrated clean coronary arteries so he was started on medical management with Lasix as well as Coreg. His blood pressures were soft so his lisinopril was discontinued and hopefully can be restarted at a later date when there is some recovery in his EF. He was also started on Coumadin, there is a slight potential for interaction with phenytoin with increasing his phenytoin levels I do recommend that he follow-up with his PCP as an outpatient to monitor those, he was low here on admission but would recommend continuing his current dosing secondary to the initiation of Coumadin. We will also start him on Jardiance given his severe LV dysfunction and will have him follow-up with cardiology as an outpatient for repeat monitoring and potential cardiac MRI. I discussed with him the plan for possible discharge today he and his expressed understanding of the risk benefits of going home and they would like to go home today. I discussed with him the importance of medical compliance with his medications as well as being cognizant of potential slow recovery and to try not to overdo physical exertion as he states that he feels fine. Follow- up with your PCP in 3 to 5 days for outpatient monitoring as well as INR evaluation for Coumadin level and then your renal function monitoring with a BMP secondary to the initiation of Lasix. 2. Seizure disorder?continue with his phenytoin, his Dilantin level was low at 5.8, recommend outpatient testing and monitoring given that he is started on Coumadin. Physical Exam Narrative General: Alert, Oriented x3, Cooperative, No apparent distress HEENT: Atraumatic, PERRLA, EOMI, Normocephalic Oral: Moist Mucosa Neck: Supple, No JVD Lungs: Diminished, Normal air movement, No rhonchi, No wheeze, No rales Cardiovascular: Regular rate, Regular Rhythm, Normal S1, Normal S2, murmurs Abdomen: Soft, Non Tender, Non-Distended, No Hepato-splenomegaly Extremities: No edema, Capillary Refill Less than 3 Seconds Skin: No rashes, No breakdown Musculoskeletal: No Tenderness to Palpation of Joints or Extremities Neurological: Cranial nerves II-XII grossly intact, Motor Exam 5/5 strength throughout, Sensory exam intact to light touch and pain Psych/Mental Status: Normal Affect, Appropriate Weight / BMI Weight Weight: 180 lb 12.465 oz Body Mass Index (BMI) 26.9 ABG / Lab / Microbiology Data Result Diagrams: 12/16/22 06:23 12/16/22 06:23 Laboratory: Laboratory Results - last 24 hr 12/15/22 12:45: Phenytoin 5.8 L 12/16/22 06:23: WBC 6.5, RBC 5.52, Hgb 16.4, Hct 48.0, MCV 87.0, MCH 29.7, MCHC 34.2, RDW Std Deviation 40.4, RDW Coeff of Hipolito 12.9, Plt Count 245, MPV 11.0, Immature Gran % (Auto) 0.200, Neut % (Auto) 47.7, Lymph % (Auto) 40.5, [place] % (Auto) 9.1, Eos % (Auto) 2.0, Baso % (Auto) 0.5, Absolute Neuts (auto) 3.1, Absolute Lymphs (auto) 2.63, Nucleated RBC % 0 12/16/22 06:23: Sodium 137, Potassium 3.7, Chloride 106, Carbon Dioxide 25.0, Anion Gap 6, BUN 28 H, Creatinine 1.35 H, Estim Creat Clear Calc 77.10, Est GFR (MDRD) Af Amer 78, Est GFR (MDRD) Non-Af 64, BUN/Creatinine Ratio 20.7 H, Glucose 94, Calcium 8.4 L Microbiology: Microbiology 12/14/22 11:48 Nasal Secretion SARS-CoV-2 & FLU Antigen (Rapid) - Final D/C Instructions Discharge Diet: No restrictions Call your doctor if you observe: Fever of 101 or Higher, Shortness of breath, Dizziness, Fainting spells, Swelling in the ankles, Chest pain and Increased palpitations (irregular heartbeat) Meaningful Use Info Meaningful Use Diagnoses (Choose all that apply): None applicable Discharge Plan Admission Admit Date/Time: 12/14/22 15:56 Attending Provider: Guanakito Henry Primary Care Provider: Sarah Powell Consulting Providers: Loreto Patten ; Oneal Elmore Instructions Patient Instructions: What to Know When Taking?Warfarin Additional Instructions / Restrictions: Follow-up with your PCP as an outpatient to monitor your renal function since you are being started on Lasix as well as your blood pressure. Also since you are being started on Coumadin for the potential blood clot in your left ventricle, I would recommend follow-up of your phenytoin levels as there may be an interaction. You will also need to be monitoring your INR as an outpatient as well because of the blood thinner you are on. Discharge Orders/Prescriptions Prescriptions: New furosemide 40 mg Tablet 40 mg PO DAILY 30 Days Qty: 30 0RF carvedilol 3.125 mg Tablet 3.125 mg PO BID 30 Days Qty: 60 0RF warfarin [Jantoven] 5 mg Tablet 5 mg PO DINNER 30 Days Qty: 30 0RF Jardiance 10 mg tablet 10 mg PO DAILY Qty: 30 0RF Continued phenytoin sodium extended 100 mg capsule 200 mg PO BID Label Comments: TAKE 1 CAPSULE BY MOUTH 4 TIMES DAILY Referrals / Follow Up: aSrah Powell NP-C [Primary Care Provider] - Noel Nelson NP, [facility] [[facility] Staff - [facility]] - 01/04/23 1:30 pm Disposition Disposition (needs filled in before D/C Order can be placed): Home, Self Care Charges/Coding Visit Charges Inpatient E&M: 47571 Disch Hosp >30min
--- NOTE | 2022-12-16 12:27 | NURSING ---
Dr Henry notified by this RN that script for Jardiance will cost $600 and pt is not willing to pay that. Per Dr Henry, pt can still be dc'd and will not take that medication. Dr Henry states he will not start new medication.
--- NOTE | 2022-12-18 13:37 | CL.D_ITS ---
Patient Name: JOSH SHARP Study Date: 12/15/2022 Performing: Yovani Boyer MD Ht: 68 inches 172.72 cm : 1990 Wt: 178.6 lbs 80.9 kg Age: 32 Gender: male BSA: 1.95 PROCEDURE(S) PERFORMED [id number])[facility] CLINICAL PROFILE AND INDICATIONS Indications: Cardiomyopathy Heart Failure: NYHA Class: 3, Newly Diagnosed: Yes, Heart Failure Type: Systolic Stress/Imaging Stress/Image Study Performed: No CAD Presentations: Symptom unlikely to be ischemic. CONCLUSIONS Normal coronary arteries Cardiomyopathy: Dilated RECOMMENDATIONS Guideline directed medical therapy and anticoagulation. DESCRIPTION OF PROCEDURE The patient arrived to the procedure lab. The risks and benefits of the procedure as well as a full description of our services here and current unavailability of surgical backup were fully explained to the patient and/or their significant other prior to the catheterization. The Timeout was completed, verifying the correct patient and procedure. The patient's procedural site was prepped and draped in the usual fashion. Local anesthetic was given subcutaneously to right radial region with Lidocaine 2%. Using a modified Seldinger technique, arterial access was obtained via the right radial artery, a 6Fr sheath was inserted. Left Coronary Artery selective angiography was performed in multiple views using a 5 Fr. 4.0 [place] catheter. Right Coronary Artery selective angiography was then performed in multiple views using a 5 Fr. 4.0 [place] catheter.The arterial sheath was pulled and a TR Band was applied for hemostasis w/ 9ml air CORONARY ANGIOGRAPHY DOMINANCE: Right Dominant LEFT HEART ASSESSMENT Left Ventricular Ejection Fraction: by Echo 10 % Global Hypokinesis - Severe LEFT MAIN: Angiographically normal LEFT ANTERIOR DESCENDING ARTERY: Angiographically normal CIRCUMFLEX ARTERY: Angiographically normal RIGHT CORONARY ARTERY: Angiographically normal COMPLICATIONS No Complications PROCEDURE MEDICATIONS Fentanyl 50 mcg IV Versed 1 mg IV Aspirin (325mg) 1 Tabs PO @ 12/15/2022 08:35:35 Heparin given IA 12/15/2022 08:47:43 Verapamil 2.5mg, Ntg 200mcgs, 2000 units of Heparin given IA 12/15/2022 08:47:43 IV Bolus: .9 NaCl 150ml total 12/15/2022 08:48:05 SUMMARY OF HEMODYNAMIC DATA Time AIR REST ECG 08:35:14 AO 76/61 (68) SA 08:54:20 AO 68/55 (62) 08:57:33 AIR REST 09:11:57 Signed By Yovani Boyer MD On 12/18/2022 13:36:48 Yovani Boyer MD
== END 2022-12-16 14:12 | disposition home or self-care (01) | DRG 286 ==
LOC: ED 14:40 → PCU 14:47
PROVIDERS: Admitting Provider Internal Medicine; Emergency Provider Emergency Medicine; PCP Nurse Practitioner Family; Visit Provider Family Medicine
DX: B33.24 Viral cardiomyopathy (principal); I50.21 Acute systolic (congestive) heart failure; I42.0 Dilated cardiomyopathy; I24.9 Acute ischemic heart disease, unspecified; G40.909 Epilepsy, unspecified, not intractable, without status epilepticus; I34.0 Nonrheumatic mitral (valve) insufficiency; Z20.822 Contact with and (suspected) exposure to COVID-19; Z79.01 Long term (current) use of anticoagulants; Z79.899 Other long term (current) drug therapy
CPT/HCPCS: 36415; 71045; 71275; 80048; 80185; 83880; 84484; 85025; 85379; 85610; 85730; 87428; 93005; 93306; 93454; 97802; 99152; 99153; 99284; Q9967; A4216; C1769; C1894; J1940

== ENCOUNTER 2022-12-25 08:04 | Outpatient (RCR) | payer OTHER, SELFPAY ==
[2022-12-21 08:30] LABS: INR Fingerstick 6.6
[2022-12-21 09:43] LABS: Prothrombin Time (Protime)PT. 46.4 SECONDS (11.7-14.9)
[2022-12-25 08:16] LABS: INR Fingerstick 1.6; Prothrombin Time Fingerstick 19.6 SEC (11.7-14.9)
== END 2022-12-25 18:00 | disposition home or self-care (01) ==
LOC: LAB 08:04
PROVIDERS: PCP Nurse Practitioner Family; Referring Provider Internal Medicine Cardiovascular Disease; Visit Provider Internal Medicine Cardiovascular Disease
DX: I42.9 Cardiomyopathy, unspecified (principal); I51.3 Intracardiac thrombosis, not elsewhere classified; Z79.01 Long term (current) use of anticoagulants
CPT/HCPCS: 36415; 36416; 85610

== ENCOUNTER 2023-01-11 08:02 | Outpatient (RCR) | payer OTHER, SELFPAY ==
[2022-12-29 08:11] LABS: INR Fingerstick 2.9; Prothrombin Time Fingerstick 33.4 SEC (11.7-14.9)
[2023-01-04 13:01] LABS: INR Fingerstick 1.8; Prothrombin Time Fingerstick 21.7 SEC (11.7-14.9)
[2023-01-04 16:33] LABS: Anion Gap 9 (5-15); BUN 18 mg/dL (7-18); BUN/Creat Ratio 12.8 RATIO (10-20); Calcium,Total 8.3 mg/dL (8.5-10.1); Chloride 105 mmol/L (98-107); Creatinine, Serum 1.41 mg/dL (0.70-1.30); EST Glomerular Filtration Rate 61 mL/min (>60); Est Glom Filt Rate - Afr Amer 74 mL/min (>60); Glucose 120 mg/dL (74-106); Potassium 3.4 mmol/L (3.5-5.1); Sodium Level 140 mmol/L (136-145); Thyroid Stim Hormone (TSH) 2.55 uIU/mL (0.358-3.74)
[2023-01-11 08:11] LABS: INR Fingerstick 3.5; Prothrombin Time Fingerstick 39.1 SEC (11.7-14.9)
== END 2023-01-11 18:00 | disposition home or self-care (01) ==
LOC: LAB 08:02
PROVIDERS: Nurse Practitioner Family; PCP Nurse Practitioner Family; Referring Provider Internal Medicine Cardiovascular Disease; Visit Provider Internal Medicine Cardiovascular Disease
DX: I51.3 Intracardiac thrombosis, not elsewhere classified (principal); I42.9 Cardiomyopathy, unspecified; Z79.01 Long term (current) use of anticoagulants
CPT/HCPCS: 36415; 36416; 80048; 83735; 83880; 84443; 85610

== ENCOUNTER 2025-01-31 14:07 | Emergency (ER) | payer OTHER, SELFPAY ==
[2025-01-31 14:14] VITALS: BP 112/81; PULSE 97; RESP 24; TEMP 36.4; O2SAT 97; BMI 32.1
--- NOTE | 2025-01-31 14:40 | CT_ITS ---
EXAM: BRAIN/HEAD WITHOUT CONTRAST CLINICAL HISTORY: 34-year-old male, status post fall, history of seizures. COMPARISON: None. TECHNIQUE: Routine CT imaging of the head without IV contrast. Additional multiplanar reformats were obtained. Dose reduction techniques were used including intermediate exposure control (AEC),iterative reconstruction technique, and/or mA and/or KV dose adjustments based on patient's size. FINDINGS: No acute intracranial hemorrhage or mass effect. The -white matter interfaces are maintained. No ventriculomegaly. The basal cisterns are patent. The orbits, visualized paranasal sinuses and mastoids are unremarkable. No acute calvarial fracture or scalp hematoma. CT/Brain/Head without Contrast IMPRESSION: Unremarkable CT head. Reading Location: [id number]
--- NOTE | 2025-01-31 14:40 | CT_ITS ---
PROCEDURE: SPINE CERVICAL WITHOUT CONTRAS REASON FOR EXAM: 34-year-old male, neck pain. Recent fall, history of seizures. TECHNIQUE: Cervical spine CT without contrast. COMPARISON: None. FINDINGS: Alignment: Normal. No traumatic subluxation. Vertebrae: No acute fracture. The vertebral body heights are maintained. Soft Tissues: No prevertebral or soft tissue hematoma. The biapical lung arias are unremarkable. CT/Spine Cervical without Contras IMPRESSION: NO ACUTE CERVICAL FRACTURE One or more dose reduction techniques were used (e.g., Automated exposure contr ol, adjustment of the mA and/or kV according to patient size, use of iterative reconstruction technique). Reading Location: [id number]
--- NOTE | 2025-01-31 14:41 | EX.ED.DYSGE1 ---
HPI History of Present Illness Chief Complaint: Seizure Detail of Chief Complaint: Seizure Informant: patient Narrative Narrative: Patient presents to the emergency department after having a seizure at home today. Patient states that he was sitting on the couch and was waking up after taking a nap when he fell forward onto the floor. His was in the other room. She tells me that the seizure may have lasted anywhere from 3 to 5 minutes whole body tonic-clonic. Patient did lose control of his bladder. He does have a history of seizure but his last seizure was 3 years ago. He tells me he has been compliant with his Keppra that has been taken 750 mg twice a day. Patient denies recent illness. Patient tells me he had a heart transplant 2 years ago. He has been doing well with that. Denies recent illness. EMS also noted that his blood sugar was 61 on arrival and they gave him orange juice. As I entered the room he states he feels great and wants to go home. [facility] Medical History Seizure Home Medications ?Medication ?Instructions ?Recorded ?Last Taken ?Type calcium 315 mg (as 1 tab PO BID 01/31/25 Unknown History citrate)-vitamin D3 5 mcg (200 unit) tablet ergocalciferol (vitamin D2) 1,250 1,250 mcg PO QWEEK 01/31/25 Unknown History mcg (50,000 unit) capsule levetiracetam 750 mg tablet 750 mg PO BID 01/31/25 Unknown History magnesium oxide 400 mg (241.3 mg 800 mg PO BID 01/31/25 Unknown History magnesium) tablet mycophenolate mofetil 250 mg 1,000 mg PO BID 01/31/25 Unknown History capsule pravastatin 40 mg tablet 40 mg PO QHS 01/31/25 Unknown History sulfamethoxazole 800 1 tab PO 01/31/25 Unknown History mg-trimethoprim 160 mg tablet tacrolimus 0.5 mg capsule, 0.5 mg PO BID 01/31/25 Unknown History immediate-release tacrolimus 1 mg capsule, 1 mg PO BID 01/31/25 Unknown History immediate-release Allergy/AdvReac Type Severity Reaction Status Date / Time No Known Allergies Allergy Verified 01/31/25 14:16 Social History Smoking Status: Never smoker ROS ROS ED Review of Systems ROS Unobtainable: other Constitutional Constitutional ED: Reports lethargy; Denies chills, fever(s), sweats or weight loss Eyes Eyes: Denies blurry vision, change in vision or diplopia ENT ENT ED: Denies rhinorrhea or sore throat Cardiovascular Cardiovascular: Denies chest pain, orthopnea or racing heartbeat Respiratory/Chest Respiratory/Chest: Denies cough, dyspnea, dyspnea on exertion, orthopnea or sputum Gastrointestinal Gastrointestinal: Denies abdominal pain, diarrhea, nausea or vomiting Genitourinary Genitourinary ED: Denies dysuria, hematuria or urinary frequency Musculoskeletal Musculoskeletal: Denies arthralgias, back pain, myalgias or neck pain Integumentary Denies abscess, Abrasions or rash Neurologic Neurologic: Reports other Details: Seizure ; Denies headache(s) or weakness Psychiatric Psychiatric: Denies anxiety, depression or suicidal thoughts Endocrine Endocrinology: Denies polydipsia, polyphagia or polyuria Hematologic/Lymphatic Hematologic/Lymphatic: Denies easy bleeding, easy bruising or lymphadenopathy Allergic/Immunologic Allergic/Immunologic ED: Denies mouth swelling, tongue swelling or urticaria EXAM Physical Exam Const Vital Signs: 01/31/25 14:14 Temperature 97.6 F L Temperature Source Oral Pulse Rate 97 Respiratory Rate 24 H Blood Pressure 112/81 H Blood Pressure Mean 91 Pulse Ox 97 Oxygen Delivery Method Room Air Positive well nourished and well developed General Appearance ED: well developed and NAD HEENT Reports TM's clear and moist mucous membranes HEENT Narrative: Ecchymosis and bruising right lateral forehead/temporal forehead. Some dried blood in the right nasal vault without evidence for septal hematoma. normocephalic and atraumatic; Negative for trauma or tenderness Tympanic Membrane ED: Yes TM's clear Eyes PERRL and EOMs intact bilaterally General Eye ED: Negative for pale conjunctiva or scleral icterus Neck no lymphadenopathy, supple and no JVD Neck Narrative: Mild diffuse tenderness over the C-spine. No bony step-offs or depressions General: Negative for tenderness Chest Wall inspection of chest normal and palpation of chest normal Chest: Negative for tenderness Resp normal respiratory effort and clear to auscultation bilaterally Effort and Inspection: Negative for respiratory distress or pain with movement Auscultation: Negative for rhonchi, wheezes or diminished lung sounds Cardio regular rate, regular rhythm, S1 normal heart sound, S2 normal heart sound and no murmurs Peripheral Pulses: pulses 2+ throughout GI normal to inspection, nondistended, normoactive bowel sounds, soft to palpation, non-tender, non-distended and no masses Back/Spine no CVA tenderness and no thoracic nor lumbar tenderness Extremity normal to inspection General Extremety ED: Negative for edema General Extremity: Negative for edema Neuro oriented x3, CN's II-XII intact bilaterally, no sensory deficits noted and gait normal Sensorium / Orientation: awake, alert, oriented to person, oriented to place and oriented to time Motor Exam: strength 5/5 throughout and strength abnormal Psych mental status grossly normal Skin no rashes or lesions noted and no wounds MDM MDM MDM Narrative Medical decision making narrative: Patient presents to the emergency department after sustaining a seizure. Evidence of trauma to the right mandaeism and bridge of the nose. Exam consistent with seizure as well as with history of seizure. Patient tells me has been compliant with his medications. CBC with differential white count 6.7 hemoglobin 16.1 platelet count 256. Chemistries and LFTs unremarkable. CT scan of the brain without contrast was unremarkable and CT C-spine was negative for fractures. This point he is back to his baseline and would like to go home as he feels well. Advised to follow-up with neurologist as needed Lab Data Attestation: I reviewed the patient's lab results. Labs: Laboratory Results - last 24 hr 01/31/25 13:55 WBC 6.7 RBC 5.82 Hgb 16.1 Hct 49.8 MCV 85.6 MCH 27.7 MCHC 32.3 RDW Std Deviation 41.1 RDW Coeff of Hipolito 13.2 Plt Count 256 MPV 9.4 Immature Gran % (Auto) 0.100 Neut % (Auto) 33.3 L Lymph % (Auto) 51.8 H [place] % (Auto) 11.7 H Eos % (Auto) 2.5 Baso % (Auto) 0.6 Absolute Neuts (auto) 2.2 Absolute Lymphs (auto) 3.46 Nucleated RBC % 0 Sodium 138 Potassium 3.8 Chloride 103 Carbon Dioxide 15.4 L Anion Gap 20 H BUN 19 Creatinine 1.41 H Estim Creat Clear Calc 83.82 Est GFR (MDRD) Non-Af 66 BUN/Creatinine Ratio 13.1 Glucose 86 Calcium 8.8 Total Bilirubin 0.82 AST 28 ALT 34 Alkaline Phosphatase 79 Total Protein 7.0 Albumin 4.2 Globulin 2.8 Albumin/Globulin Ratio 1.5 Radiography Diagnostic Testing: Clinical Impression(s) from Imaging Studies Brain CT 01/31/25 14:40 IMPRESSION: Unremarkable CT head. Reading Location: [facility] Cervical Spine CT 01/31/25 14:40 IMPRESSION: NO ACUTE CERVICAL FRACTURE One or more dose reduction techniques were used (e.g., Automated exposure control, adjustment of the mA and/or kV according to patient size, use of iterative reconstruction technique). Reading Location: [facility] Discharge Plan Triage Chief Complaint: Seizure ED Provider: Ry Arroyo Dx/Rx/DC Orders Clinical Impression: Seizure Instructions: ED Seizure, Recurrent (Adult) Prescriptions: No Action pravastatin 40 mg tablet 40 mg PO QHS mycophenolate mofetil 250 mg capsule 1,000 mg PO BID sulfamethoxazole-trimethoprim 800-160 mg tablet 1 tab PO magnesium oxide 400 mg (241.3 mg magnesium) tablet 800 mg PO BID levetiracetam 750 mg tablet 750 mg PO BID ergocalciferol (vitamin D2) 1,250 mcg (50,000 unit) capsule 1,250 mcg PO QWEEK tacrolimus 1 mg capsule 1 mg PO BID tacrolimus 0.5 mg capsule 0.5 mg PO BID calcium citrate-vitamin D3 315 mg-5 mcg (200 unit) tablet 1 tab PO BID Primary Care Provider: Sarah Powell Referrals: Sarah Powell, CAUL PULLER-C [Primary Care Provider] - Activity Restrictions/Additional Instructions: Follow-up with your neurologist as needed or if persistent or recurrent seizures. Print Language: Maori Disposition Disposition: Home, Self Care
[2025-01-31 15:16] LABS: Absolute Lymphocyte Count 3.46 X10^3/uL (0.83-4.51); Absolute Neutrophil Count 2.2 X10^3/uL (2.0-7.7); Basophil# 0.04 X10^3/uL; Basophil% 0.6 % (0-1); Eosinophil# 0.17 X10^3/uL; Eosinophils% 2.5 % (0-5); Hematocrit 49.8 % (40-54); Hemoglobin 16.1 g/dL (13.0-16.5); Lymphocyte # 3.46 X10^3/ul (0.83-4.51); Lymphocyte % 51.8 % (19-41); Mean Corp Hgb Conc 32.3 g/dL (32-36); Mean Corpuscular Hgb 27.7 pg (27.0-32.0); Mean Corpuscular Volume 85.6 fL (80-94); Mean Platelet Vol. 9.4 fl (6.2-12.0); Monocyte# 0.78 X10^3/uL; Monocyte% 11.7 % (0-10); NRBC Flagged by Analyzer 0 % (0-5); Neutrophil # 2.22 X10^3/uL (2.7-7.7); Neutrophil % 33.3 % (47-70); Platelet Count 256 K/mm3 (150-450); RBC Distribution Width CV 13.2 % (11.6-14.6); RBC Distribution Width SD 41.1 fl (35.1-43.9); Red Blood Count 5.82 M/mm3 (4.6-6.2); White Blood Count 6.7 K/mm3 (4.4-11.0)
[2025-01-31 15:55] LABS: ALB/GLOB Ratio 1.5 RATIO (0.9-2.4); AST(SGOT) 28 U/L (<=37); Alanine Aminotransfer ALT/SGPT 34 U/L (<=46); Albumin, Serum 4.2 g/dL (3.5-5.0); Alkaline Phosphatase 79 U/L (40-129); Anion Gap 20 (5-15); BUN 19 mg/dL (4-19); BUN/Creat Ratio 13.1 RATIO (10-20); Calcium,Total 8.8 mg/dL (7.6-11.0); Carbon Dioxide 15.4 mmol/L (21.0-32.0); Chloride 103 mmol/L (98-108); Creatinine, Serum 1.41 mg/dL (0.70-1.20); EST Glomerular Filtration Rate 66 (>60); Estimated Creatinine Clearance 83.82 ml/min (50-250); Globulin 2.8 g/dL (2.2-4.2); Glucose 86 mg/dL (70-99); Potassium 3.8 mmol/L (3.3-5.1); Sodium Level 138 mmol/L (133-145); Total Bilirubin 0.82 mg/dL (0.00-1.30)
[2025-01-31 16:09] VITALS: BP 126/79; PULSE 92; RESP 21; O2SAT 98
[2025-01-31 16:19] VITALS: BP 126/79; PULSE 92; RESP 21; TEMP 36.4; O2SAT 98
== END 2025-01-31 16:24 | disposition home or self-care (01) ==
PROVIDERS: Emergency Provider Emergency Medicine; PCP Nurse Practitioner Family; Visit Provider Emergency Medicine
DX: R56.9 Unspecified convulsions (principal); Z94.1 Heart transplant status; S00.83XA Contusion of other part of head, initial encounter; W08.XXXA Fall from other furniture, initial encounter; Y92.009 Unspecified place in unspecified non-institutional (private) residence as the place of occurrence of the external cause; Z79.899 Other long term (current) drug therapy
CPT/HCPCS: 70450; 72125; 80053; 85025; 99285